=== PATIENT | female | born 1955 | race Caucasian/White ===

== ENCOUNTER 2023-06-30 13:38 | Outpatient (CLI) | payer MEDICARE | END 2023-06-30 13:39 | disposition home or self-care (01) | LOC: CSHMAMMO 13:38 | PROVIDERS: ATTEND Family Medicine | DX: Z12.31 Encounter for screening mammogram for malignant neoplasm of breast (principal); Z80.3 Family history of malignant neoplasm of breast; Z91.89 Other specified personal risk factors, not elsewhere classified | CPT/HCPCS: 77063; 77067 ==

== ENCOUNTER 2023-07-12 19:45 | Emergency (ER) | payer MEDICARE ==
[2023-07-12] MEDS ORDERED: Lidocaine 1% PF 5 ML VIAL ONE (20:04)
[2023-07-12] MEDS ORDERED: Boostrix 0.5 ML (Tdap) VIAL (>/=7 yrs of age) ONE (20:04)
[2023-07-12] MEDS ORDERED: Triple Antibiotic Oint 1 GM Packet ONE (20:48)
== END 2023-07-12 20:55 | disposition home or self-care (01) ==
LOC: CSHERS 19:45
DX: S61.211A Laceration without foreign body of left index finger without damage to nail, initial encounter (principal); I10 Essential (primary) hypertension; W29.0XXA Contact with powered kitchen appliance, initial encounter; Z23 Encounter for immunization; Z79.82 Long term (current) use of aspirin
CPT/HCPCS: 12001; 90471; 90715

== ENCOUNTER 2024-07-03 08:56 | Outpatient (CLI) | payer MEDICARE | END 2024-07-03 08:57 | disposition home or self-care (01) | LOC: CSHMAMMO 08:56 | PROVIDERS: ATTEND Family Medicine | DX: Z12.31 Encounter for screening mammogram for malignant neoplasm of breast (principal); Z80.3 Family history of malignant neoplasm of breast; Z91.89 Other specified personal risk factors, not elsewhere classified | CPT/HCPCS: 77063; 77067 ==

== ENCOUNTER 2025-07-04 12:40 | Outpatient (CLI) | payer MEDICARE | END 2025-07-04 12:41 | disposition home or self-care (01) | LOC: CSHMAMMO 12:40 | PROVIDERS: ATTEND Family Medicine | DX: Z12.31 Encounter for screening mammogram for malignant neoplasm of breast (principal); Z80.3 Family history of malignant neoplasm of breast; Z91.89 Other specified personal risk factors, not elsewhere classified | CPT/HCPCS: 77063; 77067 ==